=== PATIENT | male | born 1970 | race Caucasian/White ===

== ENCOUNTER 2019-06-27 09:04 | Inpatient (IN) | payer MEDICAID ==
[~2019-06-27] VITALS: Ht 167.6 cm; Wt 69.6 kg
[~2019-06-27 09:04] MED LIST: CIPR500T4 PO; FOLI-49 PO; HYDR-4011 PO; METR-122 PO; THIA100T56 PO
[2019-06-27] MEDS ORDERED: ONDANSETRON 4 MG INJ IV STA (09:49)
[2019-06-27] MEDS ORDERED: SOD CHLORIDE 0.9% 200 ML IV STA (09:49)
[2019-06-27] MEDS ORDERED: morphine 4 MG/ML VIAL IV STA (09:49)
[2019-06-27] MEDS ORDERED: metroNIDAZOLE 500 MG/NS (PMX) 100 ML IVPB ONE (11:00)
[2019-06-27] MEDS ORDERED: PIPER-TAZO 3.375 GM IV (PMX) 100 ML IVPB ONE (11:00)
[2019-06-27] MEDS ORDERED: SOD CHLORIDE 0.9% 500 ML IV ONE (11:00)
[2019-06-27] MEDS ORDERED: ACETAMINOPHEN 325 MG TAB PO PRN (12:00)
[2019-06-27] MEDS ORDERED: ONDANSETRON 4 MG INJ IV PRN ×2 (12:00→12:30)
[2019-06-27] MEDS ORDERED: LORAZEPAM 2 MG INJ IV PRN (12:30)
[2019-06-27] MEDS: FAMOTIDINE 20 MG INJ IV SCH ×2 (12:59→21:14)
[2019-06-27] MEDS: DEXTROSE 5%-0.45% NACL 1,000 ML IV SCH ×2 (13:50→21:14)
[2019-06-27] MEDS: morphine 4 MG/ML VIAL IV PRN ×3 (14:52→21:33)
[2019-06-27 16:55] VITALS: Ht 167.6 cm; Wt 69.6 kg
[2019-06-27 16:59] VITALS: BP 129/82; PULSE 89; RESP 18
[2019-06-27 19:52] VITALS: BP 119/77; PULSE 76; RESP 20
[2019-06-27] MEDS ORDERED: PIPER-TAZO 3.375 GM IV (PMX) 100 ML ONE (19:55)
[2019-06-27] MEDS ORDERED: DOCUSATE SODIUM 100 MG CAP PO ONE (19:55)
[2019-06-27] MEDS: DOCUSATE SODIUM 100 MG CAP PO SCH (21:00)
[2019-06-27] MEDS: PIPER-TAZO 3.375 GM IV (PMX) 100 ML IVPB SCH (21:38)
[2019-06-28] MEDS: morphine 4 MG/ML VIAL IV PRN ×6 (01:42→23:39)
[2019-06-28 02:05] VITALS: BP 116/79; PULSE 80; RESP 18
[2019-06-28] MEDS: PIPER-TAZO 3.375 GM IV (PMX) 100 ML IVPB SCH ×3 (05:21→22:05)
[2019-06-28] MEDS: DEXTROSE 5%-0.45% NACL 1,000 ML IV SCH ×4 (05:21→23:40)
[2019-06-28 08:00] VITALS: BP 117/73; PULSE 66; RESP 18
[2019-06-28] MEDS: DOCUSATE SODIUM 100 MG CAP PO SCH ×2 (08:37→22:08)
[2019-06-28] MEDS: FAMOTIDINE 20 MG INJ IV SCH ×2 (08:39→22:05)
[2019-06-28 14:00] VITALS: BP 118/77; PULSE 64; RESP 20
[2019-06-28] MEDS: ACETAMINOPHEN 325 MG TAB PO PRN (15:39)
[2019-06-28 20:00] VITALS: BP 121/78; PULSE 83; RESP 19
[2019-06-29 02:00] VITALS: BP 113/70; PULSE 79; RESP 18
[2019-06-29] MEDS: morphine 4 MG/ML VIAL IV PRN ×5 (03:53→20:54)
[2019-06-29] MEDS: PIPER-TAZO 3.375 GM IV (PMX) 100 ML IVPB SCH ×3 (06:10→22:23)
[2019-06-29 08:00] VITALS: BP 118/74; PULSE 76; RESP 20
[2019-06-29] MEDS: DEXTROSE 5%-0.45% NACL 1,000 ML IV SCH ×2 (08:31→20:30)
[2019-06-29] MEDS: FAMOTIDINE 20 MG INJ IV SCH (08:31)
[2019-06-29] MEDS: DOCUSATE SODIUM 100 MG CAP PO SCH ×2 (08:34→20:46)
[2019-06-29] MEDS: POTASSIUM CHLORIDE (SR) 20 MEQ TAB PO SCH ×2 (11:55→15:57)
[2019-06-29] MEDS: CHLORDIAZEPOXIDE 25 MG CAP PO SCH ×2 (12:24→20:46)
[2019-06-29] MEDS: MULTIVITAMINS 10 ML, THIAMINE 100 MG, FOLIC ACID 1 MG in SOD CHLORIDE 0.9% 1,000 ML IVPB SCH (12:52)
[2019-06-29 14:00] VITALS: BP 118/71; PULSE 85; RESP 20
[2019-06-29 20:40] VITALS: BP 134/81; PULSE 82; RESP 18
[2019-06-29] MEDS: FAMOTIDINE 20 MG TAB PO SCH (20:46)
[2019-06-30] MEDS: morphine 4 MG/ML VIAL IV PRN ×6 (00:57→23:16)
[2019-06-30 02:10] VITALS: BP 119/79; PULSE 73; RESP 16
[2019-06-30] MEDS: DEXTROSE 5%-0.45% NACL 1,000 ML IV SCH (05:14)
[2019-06-30] MEDS: PIPER-TAZO 3.375 GM IV (PMX) 100 ML IVPB SCH ×3 (05:14→22:45)
[2019-06-30 08:04] VITALS: BP 119/79; PULSE 80; RESP 19
[2019-06-30] MEDS: CHLORDIAZEPOXIDE 25 MG CAP PO SCH ×2 (08:45→20:05)
[2019-06-30] MEDS: MULTIVITAMINS 10 ML, THIAMINE 100 MG, FOLIC ACID 1 MG in SOD CHLORIDE 0.9% 1,000 ML IVPB SCH (08:45)
[2019-06-30] MEDS: FAMOTIDINE 20 MG TAB PO SCH ×2 (08:45→20:06)
[2019-06-30] MEDS: DOCUSATE SODIUM 100 MG CAP PO SCH ×2 (08:45→20:06)
[2019-06-30] MEDS ORDERED: POTASSIUM CHLORIDE (SR) 20 MEQ TAB PO STA (11:52)
[2019-06-30] MEDS ORDERED: DOCUSATE SODIUM 100 MG CAP PO SCH (12:30)
[2019-06-30 14:00] VITALS: BP 126/81; PULSE 79; RESP 19
[2019-06-30 20:00] VITALS: BP 114/77; PULSE 85; RESP 19
[2019-06-30] MEDS: ACETAMINOPHEN 325 MG TAB PO PRN (20:06)
[2019-07-01 02:00] VITALS: BP 114/65; PULSE 90; RESP 19
[2019-07-01] MEDS ORDERED: VANCOMYCIN IV PER PHARMACY XX SCH (02:30)
[2019-07-01] MEDS: ACETAMINOPHEN 325 MG TAB PO PRN ×2 (02:32→15:36)
[2019-07-01] MEDS ORDERED: VANCOMYCIN 1.5 GM/NS 250 ML 250 ML IVPB ONE (03:00)
[2019-07-01] MEDS: morphine 4 MG/ML VIAL IV PRN ×5 (03:25→22:48)
[2019-07-01] MEDS: PIPER-TAZO 3.375 GM IV (PMX) 100 ML IVPB SCH ×3 (06:30→22:32)
[2019-07-01 08:20] VITALS: BP 120/75; PULSE 77; RESP 19
[2019-07-01] MEDS ORDERED: IOHEXOL 300MG/ML 150 ML BTL ONE (09:08)
[2019-07-01] MEDS ORDERED: SOD CHLORIDE 0.9% 100 ML ONE (09:08)
[2019-07-01] MEDS: MULTIVITAMINS 10 ML, THIAMINE 100 MG, FOLIC ACID 1 MG in SOD CHLORIDE 0.9% 1,000 ML IVPB SCH (09:55)
[2019-07-01] MEDS: FAMOTIDINE 20 MG TAB PO SCH ×2 (09:55→21:59)
[2019-07-01] MEDS: CHLORDIAZEPOXIDE 25 MG CAP PO SCH ×2 (09:55→21:58)
[2019-07-01] MEDS: DOCUSATE SODIUM 100 MG CAP PO SCH ×2 (09:55→21:58)
[2019-07-01 14:00] VITALS: BP 124/73; PULSE 88; RESP 20
[2019-07-01] MEDS: VANCOMYCIN 1 GM 250 ML IVPB SCH (16:17)
[2019-07-01 19:50] VITALS: BP 142/82; PULSE 85; RESP 18
[2019-07-02 02:12] VITALS: BP 106/72; PULSE 80; RESP 18
[2019-07-02] MEDS: ACETAMINOPHEN 325 MG TAB PO PRN (02:48)
[2019-07-02] MEDS: VANCOMYCIN 1 GM 250 ML IVPB SCH ×2 (02:49→17:03)
[2019-07-02] MEDS: morphine 4 MG/ML VIAL IV PRN ×3 (03:08→20:40)
[2019-07-02] MEDS: PIPER-TAZO 3.375 GM IV (PMX) 100 ML IVPB SCH ×3 (05:36→22:01)
[2019-07-02] MEDS: FAMOTIDINE 20 MG TAB PO SCH ×2 (08:39→20:42)
[2019-07-02] MEDS: DOCUSATE SODIUM 100 MG CAP PO SCH ×2 (08:39→20:42)
[2019-07-02] MEDS: CHLORDIAZEPOXIDE 25 MG CAP PO SCH (08:39)
[2019-07-02] MEDS: MULTIVITAMINS 10 ML, THIAMINE 100 MG, FOLIC ACID 1 MG in SOD CHLORIDE 0.9% 1,000 ML IVPB SCH (08:39)
[2019-07-02] MEDS: THIAMINE 100 MG TAB PO SCH (08:39)
[2019-07-02 08:46] VITALS: BP 114/69; PULSE 76; RESP 18
[2019-07-02] MEDS ORDERED: DIPHENHYDRAMINE 50 MG INJ IV PRN (11:30)
[2019-07-02] MEDS: metroNIDAZOLE 500 MG/NS (PMX) 100 ML IVPB SCH ×2 (11:34→22:49)
[2019-07-02 14:00] VITALS: BP 104/68; PULSE 78; RESP 18
[2019-07-02] MEDS: SOD CHLORIDE 0.9% 1,000 ML IV SCH ×2 (14:07→19:30)
[2019-07-02] MEDS: DIPHENHYDRAMINE 1%/ZINC 28.3 GM CR TOP SCH ×2 (14:08→17:03)
[2019-07-02] MEDS ORDERED: POTASSIUM CHLORIDE (SR) 20 MEQ TAB PO STA (15:17)
[2019-07-02 20:05] VITALS: BP 108/66; PULSE 82; RESP 18
[2019-07-03] MEDS: DIPHENHYDRAMINE 1%/ZINC 28.3 GM CR TOP SCH ×4 (00:32→17:42)
[2019-07-03] MEDS: VANCOMYCIN 1 GM 250 ML IVPB SCH ×3 (01:29→16:15)
[2019-07-03] MEDS: morphine 4 MG/ML VIAL IV PRN (02:17)
[2019-07-03 02:25] VITALS: BP 104/68; PULSE 77; RESP 18
[2019-07-03] MEDS: SOD CHLORIDE 0.9% 1,000 ML IV SCH ×3 (03:30→19:30)
[2019-07-03] MEDS: metroNIDAZOLE 500 MG/NS (PMX) 100 ML IVPB SCH ×2 (05:11→14:27)
[2019-07-03] MEDS: PIPER-TAZO 3.375 GM IV (PMX) 100 ML IVPB SCH ×2 (06:33→13:28)
[2019-07-03 08:28] VITALS: BP 106/63; PULSE 78; RESP 18
[2019-07-03] MEDS: FAMOTIDINE 20 MG TAB PO SCH ×2 (08:50→20:46)
[2019-07-03] MEDS: FOLIC ACID 1 MG TAB PO SCH (08:50)
[2019-07-03] MEDS: THIAMINE 100 MG TAB PO SCH (08:50)
[2019-07-03] MEDS: DOCUSATE SODIUM 100 MG CAP PO SCH ×2 (08:56→20:48)
[2019-07-03 14:12] VITALS: BP 110/60; PULSE 77; RESP 18
[2019-07-03] MEDS ORDERED: POTASSIUM CHLORIDE (SR) 20 MEQ TAB PO STA (14:19)
[2019-07-03] MEDS ORDERED: HYDROCORTISONE 1% 28 GM CR TOP SCH (15:00)
[2019-07-03] MEDS: HYDROCORTISONE 1% 28 GM CR TOP SCH ×2 (18:21→22:14)
[2019-07-03] MEDS: FLUCONAZOLE 100 MG/50 ML 50 ML IVPB SCH (19:00)
[2019-07-03 20:00] VITALS: BP 116/70; PULSE 69; RESP 17
[2019-07-03] MEDS: MEROPENEM 1 GM/50ML(PMX) 50 ML IVPB SCH (22:08)
[2019-07-04] MEDS: DIPHENHYDRAMINE 1%/ZINC 28.3 GM CR TOP SCH ×4 (00:08→17:48)
[2019-07-04] MEDS: VANCOMYCIN 1 GM 250 ML IVPB SCH (01:23)
[2019-07-04] MEDS ORDERED: ALTEPLASE (CATHFLO) 2 MG INJ CATHETER PRN (01:30)
[2019-07-04 02:13] VITALS: BP 116/77; PULSE 66; RESP 18
[2019-07-04] MEDS: SOD CHLORIDE 0.9% 1,000 ML IV SCH ×3 (03:52→17:48)
[2019-07-04] MEDS: MEROPENEM 1 GM/50ML(PMX) 50 ML IVPB SCH ×3 (05:54→22:20)
[2019-07-04] MEDS: FAMOTIDINE 20 MG TAB PO SCH ×2 (08:03→20:41)
[2019-07-04] MEDS: THIAMINE 100 MG TAB PO SCH (08:03)
[2019-07-04] MEDS: DOCUSATE SODIUM 100 MG CAP PO SCH ×2 (08:03→20:40)
[2019-07-04] MEDS: FOLIC ACID 1 MG TAB PO SCH (08:03)
[2019-07-04] MEDS: VANCOMYCIN 1.25 GM/NS 250 ML 250 ML IVPB SCH ×2 (08:51→17:48)
[2019-07-04] MEDS: HYDROCORTISONE 1% 28 GM CR TOP SCH ×2 (08:53→20:41)
[2019-07-04] MEDS ORDERED: FENTAnyl 50 MCG/ML VIAL ONE ×2 (09:08→13:49)
[2019-07-04] MEDS ORDERED: MIDAZOLAM 1 MG/ML 2 ML INJ ONE (09:08)
[2019-07-04] MEDS ORDERED: LIDOCAINE 1% (MDV) 20 ML INJ ONE ×2 (09:25→13:00)
[2019-07-04 15:07] VITALS: BP 111/75; PULSE 66; RESP 16
[2019-07-04] MEDS: FLUCONAZOLE 100 MG/50 ML 50 ML IVPB SCH (16:32)
[2019-07-04] MEDS: morphine 4 MG/ML VIAL IV PRN (17:48)
[2019-07-04 20:00] VITALS: BP 107/73; PULSE 78; RESP 18
[2019-07-04] MEDS: ACETAMINOPHEN 325 MG TAB PO PRN (20:40)
[2019-07-05] MEDS: DIPHENHYDRAMINE 1%/ZINC 28.3 GM CR TOP SCH ×4 (00:11→17:36)
[2019-07-05] MEDS: SOD CHLORIDE 0.9% 1,000 ML IV SCH (00:13)
[2019-07-05] MEDS: VANCOMYCIN 1.25 GM/NS 250 ML 250 ML IVPB SCH ×3 (01:14→17:37)
[2019-07-05 02:00] VITALS: BP 126/79; PULSE 69; RESP 18
[2019-07-05] MEDS: MEROPENEM 1 GM/50ML(PMX) 50 ML IVPB SCH ×3 (06:21→21:34)
[2019-07-05 08:30] VITALS: BP 105/79; PULSE 79; RESP 17
[2019-07-05] MEDS: HYDROCORTISONE 1% 28 GM CR TOP SCH ×2 (09:07→21:35)
[2019-07-05] MEDS: FAMOTIDINE 20 MG TAB PO SCH ×2 (09:07→21:34)
[2019-07-05] MEDS: FOLIC ACID 1 MG TAB PO SCH (09:07)
[2019-07-05] MEDS: THIAMINE 100 MG TAB PO SCH (09:07)
[2019-07-05] MEDS: DOCUSATE SODIUM 100 MG CAP PO SCH ×2 (09:07→21:34)
[2019-07-05 14:00] VITALS: BP 125/86; PULSE 76; RESP 18
[2019-07-05] MEDS: FLUCONAZOLE 100 MG/50 ML 50 ML IVPB SCH (16:27)
[2019-07-05 20:00] VITALS: BP 120/91; PULSE 67; RESP 18
[2019-07-06] MEDS: DIPHENHYDRAMINE 1%/ZINC 28.3 GM CR TOP SCH ×4 (00:09→17:24)
[2019-07-06] MEDS: VANCOMYCIN 1.25 GM/NS 250 ML 250 ML IVPB SCH ×3 (01:32→17:00)
[2019-07-06] MEDS: ACETAMINOPHEN 325 MG TAB PO PRN (01:38)
[2019-07-06 02:00] VITALS: BP 118/75; RESP 19
[2019-07-06] MEDS: MEROPENEM 1 GM/50ML(PMX) 50 ML IVPB SCH ×2 (05:32→14:00)
[2019-07-06 07:45] VITALS: BP 130/84; PULSE 55; RESP 16
[2019-07-06] MEDS: DOCUSATE SODIUM 100 MG CAP PO SCH (09:41)
[2019-07-06] MEDS: THIAMINE 100 MG TAB PO SCH (09:41)
[2019-07-06] MEDS: HYDROCORTISONE 1% 28 GM CR TOP SCH (09:41)
[2019-07-06] MEDS: FOLIC ACID 1 MG TAB PO SCH (09:42)
[2019-07-06] MEDS: FAMOTIDINE 20 MG TAB PO SCH (09:42)
[2019-07-06 14:35] VITALS: BP 122/75; PULSE 70; RESP 16
[2019-07-06] MEDS ORDERED: FLUCONAZOLE 100 MG TAB PO SCH (17:00)
== END 2019-07-06 17:45 | disposition home or self-care (01) | DRG 872 ==
LOC: E/R 09:04 → PP2 11:55 → SUATTDRO 12:08
PROVIDERS: ADMIT Family Medicine; ATTEND Family Medicine
PROC: 02HV33Z Insertion of Infusion Device into Superior Vena Cava, Percutaneous Approach (ICD-10-PCS; 2019-07-01)
PROC: B548ZZA Ultrasonography of Superior Vena Cava, Guidance (ICD-10-PCS; 2019-07-01)
PROC: 0W9J30Z Drainage of Pelvic Cavity with Drainage Device, Percutaneous Approach (ICD-10-PCS; principal; 2019-07-04)
DX: A41.9 Sepsis, unspecified organism (principal); K57.20 Diverticulitis of large intestine with perforation and abscess without bleeding; I45.2 Bifascicular block; F17.200 Nicotine dependence, unspecified, uncomplicated; B96.20 Unspecified Escherichia coli [E. coli] as the cause of diseases classified elsewhere; Z72.89 Other problems related to lifestyle
CPT/HCPCS: 36415; 36573; 71045; 74176; 74177; 77012; 80048; 80053; 80202; 81001; 81003; 82962; 83690; 83735; 84100; 85025; 85610; 85651; 86803; 87070; 87086; 87340; 93005; 96374; 96375; C1729; J1450; J2185; J2250; J2270; J2405; J2543; J2997; J3010; J3370; J3411; J7030; J7040; J7042; Q9967